=== PATIENT | female | born 1955 | race Caucasian/White ===

== ENCOUNTER → 2016-11-02 | Outpatient (CLI) | payer OTHER ==
--- NOTE | 2016-11-02 18:15 | DX ---
AP Supine Pelvis, Single View at 1:23 p.m. Clinical History: 60-year-old female complaining of right hip pain for 3 months (with special attenti on to the right iliac crest). Rule out abnormality. ICD-10 Diagnostic Code: M25.551. Comparison Study: Pelvis, dated May 18, 2013, retrieved from archive status. Findings: A prior DEXA scan revealed osteoporosis. Each femoral head is well-seated within its respe ctive acetabulum. There is some mild acetabular periarticular spurring, although the femoral and acet abular joint spaces are reasonably well-preserved. The ischial pubic rami are intact. There is no sym physis pubis or SI joint diastasis. Moderate constipation is presents, which slightly obscures some o f the pelvic osseous anatomy. The iliac crests are intact. Impression: Age-appropriate features of the pelvis, with no acute or subacute osseous abnormality. If there is further clinical concern regarding the patient's right hip pain, MR imaging could be cons idered.
== END ==
LOC: BMCIMAGING 13:24
PROVIDERS: ATTEND Internal Medicine
DX: M25.551 Pain in right hip (principal); M81.0 Age-related osteoporosis without current pathological fracture

== ENCOUNTER → 2016-11-26 | Outpatient (CLI) | payer OTHER ==
[~2016-11-26] MED LIST: GADOBUTROL 10 ML VIAL IVP ONE
--- NOTE | 2016-11-27 23:04 | MR ---
MRI of the Right Hip, Without and With Contrast Yesterday. History: Pain over the anterosuperior iliac spine. Technique: Prior to contrast administration, axial, sagittal, and coronal MR sequences of the pelvis are obtained. After intravenous administration of 5 mL Gadavist, postcontrast-enhanced imaging is o btained in three planes. Findings: There is abnormal T2 signal and enhancement involving the sartorius tendon at the origin f rom the anterosuperior iliac spine compatible with tendinosis and peritendinosis. No evidence of com plete tendon tear or retraction. No marrow signal abnormality noted and no soft tissue mass identifi ed. The hips are normal in appearance bilaterally, without significant chondral loss or labral pathology. The sacroiliac joints and symphysis pubis appear normal. No pelvic free fluid or masses. Impression: Focal tendinosis and peritendinosis involving the origin of the right sartorius tendon f rom the anterosuperior iliac spine. Comment: This would represent an excellent target for ultrasound-guided PRP treatment, as clinically appropriate. E:RN/parmjit
== END ==
LOC: FIMAGING 19:44
PROVIDERS: ATTEND Internal Medicine
DX: M76.891 Other specified enthesopathies of right lower limb, excluding foot (principal)
CPT/HCPCS: A9585

== ENCOUNTER → 2017-02-06 | Outpatient (CLI) | payer OTHER | LOC: FIMAGING 14:29 | DX: Z12.31 Encounter for screening mammogram for malignant neoplasm of breast (principal); Z85.3 Personal history of malignant neoplasm of breast | CPT/HCPCS: G0202 ==

== ENCOUNTER 2017-12-23 20:12 | Inpatient (IN) | payer OTHER ==
[2017-12-23] MEDS ORDERED: NS 1,000 ML IV ONE ×2 (20:46→21:59)
--- NOTE | 2017-12-23 21:54 | EDPHY ---
H & P Stated Complaint: pos allergic reaction to meds/flu symptoms Time Seen by Provider: 12/23/17 21:53 HPI/ROS: HPI CHIEF COMPLAINT: Nausea vomiting HISTORY OF PRESENT ILLNESS: This patient very pleasant 62-year-old female she presents emergency room nausea vomiting. She states that yesterday she went to urgent care she thought she had the flu she was having chills and feeling bad. She states that she had a flu test was negative but was still prescribed Tamiflu in additionally she was diagnosed with a urinary tract infection and started on Bactrim. She states that she vomited 4-5 times thought maybe she was having a reaction the Tamiflu or Bactrim. She was switched to another antibiotic. However she continues to feel very bad. She denies any chest pain shortness of breath. Denies abdominal pain. Does endorse ongoing nausea. Past Medical History: Osteoporosis takes Fosamax Past Surgical History: Denies significant surgical history Social History: Denies drugs alcohol tobacco products. Family History: Noncontributory ROS REVIEW OF SYSTEMS: A comprehensive 10 point review of systems is otherwise negative aside from elements mentioned in the history of present illness. Exam Constitutional appears well nontoxic no acute distress, triage nursing summary reviewed, vital signs reviewed, awake/alert. Eyes normal conjunctivae and sclera, EOMI, PERRLA. HENT normal inspection, atraumatic, moist mucus membranes, no epistaxis, neck supple/ no meningismus, no raccoon eyes. Respiratory clear to auscultation bilaterally, normal breath sounds, no respiratory distress, no wheezing. Cardiovascular rate normal, regular rhythm, no murmur, no edema, distal pulses normal. Gastrointestinal soft, non-tender, no rebound, no guarding, normal bowel sounds, no distension, no pulsatile mass. Genitourinary no CVA tenderness. Musculoskeletal no midline vertebral tenderness, full range of motion, no calf swelling, no tenderness of extremities, no meningismus, good pulses, neurovascularly intact. Skin pink, warm, & dry, no rash, skin atraumatic. Neurologic awake, alert and oriented x 3, AAOx3, moves all 4 extremities equally, motor intact, sensory intact, CN II-XII intact, normal cerebellar, normal vision, normal speech. Psychiatric normal mood/affect. Heme/Lymph/Immune no lymphadenopathy. Differential diagnosis includes but is not limited to and in no particular order : sepsis, bacteremia, UTI, pyelonephritis Bowel obstruction, appendicitis, gallbladder disease, diverticulitis, colitis, enteritis, perforated viscus, gastritis, GERD, esophagitis, urinary tract infection, pyelonephritis, kidney stones Medical Decision Making: Plan for this patient IV established with IV fluid bolus, IV Zofran 4 mg for nausea, check basic blood work, EKG, lactic acid, UA. Re-evaluate. Re-evaluation: EKG interpretation by me on record in [employer] system. Impression time of EKG 2213, this is sinus rhythm rate of 72 LVH present. T-wave abnormality V1 V2 V3. No ST elevation. 2241: Sodium critically low 113. Patient received 1 L normal saline prior to me evaluating her. A 2nd L was ordered as she was having nausea vomiting in the emergency room. However the 2nd L been stopped due to her low sodium. Will repeat her chemistry after the 1st L. 225: Is unclear why the patient's sodium is this low. Given how low this is should be admitted to the intensive care unit for severe hyponatremia. At this time she still mentating appropriately. There has been no seizure activity. Waiting on urinalysis. I spoke with the hospitalist service Dr. White for admssion. Additionally I have repeated a chemistry as she did receive about 1.5 L normal saline. 2305: Repeat sodium 115. This is after approximately 1.5 L of normal saline. Updated patient at bedside. Patient need to be admitted for severe hyponatremia. Unclear etiology at this time. Should be admitted the ICU for close monitoring. Critical Care: Total Critical Care Time Spent Managing this Patient: 65Minutes. This time was spent Exclusively with this patient. This Care was exclusive of procedures. The Organ System/life at risk was neurological a metabolic This Patient was in Critical Condition because severe hyponatremia. Hypochloremia. Acidosis. Source: Patient - Personal History Current Tetanus Diphtheria and Acellular Pertussis (TDAP): Yes - Medical/Surgical History Hx Asthma: No Hx Chronic Respiratory Disease: No Hx Diabetes: No Hx Cardiac Disease: No Hx Renal Disease: No Hx Cirrhosis: No Hx Alcoholism: No Hx HIV/AIDS: No Hx Splenectomy or Spleen Trauma: No Other PMH: denies - Social History Smoking Status: Never smoked Constitutional: Initial Vital Signs Temperature (C) 36.5 C 12/23/17 20:27 Heart Rate 72 12/23/17 20:27 Respiratory Rate 18 12/23/17 20:27 Blood Pressure 139/60 H 12/23/17 20:27 O2 Sat (%) 96 12/23/17 20:27 O2 Delivery Mode Room Air Allergies/Adverse Reactions: cephalexin Allergy (Verified 12/23/17 20:25) Cephalosporins Allergy (Verified 12/23/17 20:25) clindamycin Allergy (Verified 12/23/17 20:25) levofloxacin Allergy (Verified 12/23/17 20:25) Penicillins Allergy (Verified 12/23/17 20:25) prednisone Allergy (Verified 12/23/17 20:25) Home Medications: Medication Instructions Recorded Codeine Phosphate/Guaifenesin 12/23/17 Fosamax 35 MG 12/23/17 LORAZEPAM 12/23/17 Medical Decision Making - Data Points Laboratory Results: Laboratory Results 12/23/17 20:55 12/23/17 22:40 12/23/17 12/23/17 12/23/17 22:40 22:22 20:55 WBC RBC Hgb Hct MCV MCH MCHC RDW Plt Count MPV Neut % (Auto) Lymph % (Auto) [place] % (Auto) Eos % (Auto) Baso % (Auto) Nucleat RBC Rel Count Absolute Neuts (auto) Absolute Lymphs (auto) Absolute Monos (auto) Absolute Eos (auto) Absolute Basos (auto) Absolute Nucleated RBC Immature Gran % Immature Gran # PT INR APTT VBG Lactic Acid 0.9 mmol/L mmol/L (0.7-2.1) Sodium 115 mEq/L L* mEq/L (135-145) Potassium 3.9 mEq/L mEq/L (3.5-5.2) Chloride 89 mEq/L L mEq/L (97-110) Carbon Dioxide 16 mEq/l L mEq/l (22-31) Anion Gap 10 mEq/L mEq/L (8-16) BUN 6 mg/dL L mg/dL (7-23) Creatinine 0.4 mg/dL L mg/dL (0.6-1.0) Estimated GFR > 60 Glucose 104 mg/dL H mg/dL (70-100) Serum Osmolality Pending Calcium 6.7 mg/dL L D mg/dL (8.5-10.4) Total Bilirubin Conjugated Bilirubin Unconjugated Bilirubin AST ALT Alkaline Phosphatase Troponin I Total Protein Albumin Lipase TSH Pending 12/23/17 12/23/17 12/23/17 20:55 20:55 20:55 WBC 4.40 10^3/uL 10^3/uL (3.80-9.50) RBC 4.00 10^6/uL L 10^6/uL (4.18-5.33) Hgb 12.5 g/dL L g/dL (12.6-16.3) Hct 35.2 % L % (38.0-47.0) MCV 88.0 fL fL (81.5-99.8) MCH 31.3 pg pg (27.9-34.1) MCHC 35.5 g/dL g/dL (32.4-36.7) RDW 11.6 % % (11.5-15.2) Plt Count 149 10^3/uL L 10^3/uL (150-400) MPV 10.4 fL fL (8.7-11.7) Neut % (Auto) 79.0 % H % (39.3-74.2) Lymph % (Auto) 9.1 % L % (15.0-45.0) [place] % (Auto) 10.9 % % (4.5-13.0) Eos % (Auto) 0.0 % L % (0.6-7.6) Baso % (Auto) 0.5 % % (0.3-1.7) Nucleat RBC Rel Count 0.5 % H % (0.0-0.2) Absolute Neuts (auto) 3.48 10^3/uL 10^3/uL (1.70-6.50) Absolute Lymphs (auto) 0.40 10^3/uL L 10^3/uL (1.00-3.00) Absolute Monos (auto) 0.48 10^3/uL 10^3/uL (0.30-0.80) Absolute Eos (auto) 0.00 10^3/uL L 10^3/uL (0.03-0.40) Absolute Basos (auto) 0.02 10^3/uL 10^3/uL (0.02-0.10) Absolute Nucleated RBC 0.02 10^3/uL H 10^3/uL (0-0.01) Immature Gran % 0.5 % % (0.0-1.1) Immature Gran # 0.02 10^3/uL 10^3/uL (0.00-0.10) PT 14.0 SEC SEC (12.0-15.0) INR 1.06 (0.83-1.16) APTT 32.0 SEC SEC (23.0-38.0) VBG Lactic Acid Sodium 113 mEq/L L* mEq/L (135-145) Potassium 4.0 mEq/L mEq/L (3.5-5.2) Chloride 86 mEq/L L mEq/L (97-110) Carbon Dioxide 16 mEq/l L mEq/l (22-31) Anion Gap 11 mEq/L mEq/L (8-16) BUN 8 mg/dL mg/dL (7-23) Creatinine 0.5 mg/dL L mg/dL (0.6-1.0) Estimated GFR > 60 Glucose 130 mg/dL H mg/dL (70-100) Serum Osmolality Calcium 8.1 mg/dL L mg/dL (8.5-10.4) Total Bilirubin 0.8 mg/dL mg/dL (0.1-1.4) Conjugated Bilirubin 0.2 mg/dL mg/dL (0.0-0.5) Unconjugated Bilirubin 0.6 mg/dL mg/dL (0.0-1.1) AST 38 IU/L IU/L (14-46) ALT 43 IU/L IU/L (9-52) Alkaline Phosphatase 56 IU/L IU/L (38-126) Troponin I < 0.012 ng/mL ng/mL (0.000-0.034) Total Protein 6.4 g/dL g/dL (6.3-8.2) Albumin 3.9 g/dL g/dL (3.5-5.0) Lipase 81 IU/L IU/L (23-300) TSH Medications Given: Discontinued Medications Sodium Chloride (Ns) 1,000 mls @ 0 mls/hr IV ONCE ONE; Wide Open PRN Reason: Protocol Stop: 12/23/17 20:47 Last Admin: 12/23/17 21:00 Dose: 1,000 mls Sodium Chloride (Ns) 1,000 mls @ 0 mls/hr IV EDNOW ONE; Wide Open PRN Reason: Protocol Stop: 12/23/17 22:00 Last Admin: 12/23/17 22:03 Dose: 1,000 mls Ondansetron HCl (Zofran) 4 mg IVP EDNOW ONE Stop: 12/23/17 22:00 Last Admin: 12/23/17 22:04 Dose: 4 mg Departure - Departure Disposition: [facility] Acute Clinical Impression: Hyponatremia Condition: Serious
[2017-12-23] MEDS ORDERED: ONDANSETRON 4 MG/2 ML VIAL IVP ONE (21:59)
[2017-12-23 22:12] LABS: PLATELET COUNT 149 10^3/uL (150-400)
--- NOTE | 2017-12-23 22:16 | CPEKG ---
Heart Rate: 72 RR Interval: 833 P-R Interval: 184 QRSD Interval: 98 QT Interval: 460 QTC Interval: 504 P [place]: 75 QRS [place]: 72 T Wave [place]: 70 EKG Severity - ABNORMAL ECG - EKG Impression: SINUS RHYTHM EKG Impression: PROBABLE LEFT ATRIAL ABNORMALITY EKG Impression: LEFT VENTRICULAR HYPERTROPHY EKG Impression: BORDERLINE PROLONGED QT INTERVAL EKG Impression: BORDERLINE T ABNORMALITIES, ANTERIOR LEADS Electronically Signed By: Nilson Solano 24-Dec-2017 12:34:40
[2017-12-23 22:21] LABS: INR 1.06 (0.83-1.16)
[2017-12-23] MEDS ORDERED: HYDROCODONE/APAP 5/325 TAB PO PRN (22:52)
[2017-12-23] MEDS ORDERED: LORazepam 0.5 MG TAB PO PRN (22:52)
[2017-12-23] MEDS ORDERED: PROMETHAZINE HCL 25 MG TAB PO PRN (22:52)
[2017-12-23] MEDS ORDERED: ACETAMINOPHEN 325 MG TAB PO PRN (22:52)
[2017-12-24] MEDS ORDERED: 1/2 NS 1,000 ML IV SCH (00:15)
[2017-12-24] MEDS ORDERED: CALCIUM CHLORIDE 1 GM in D5W 50 ML IV ONE (00:41)
[2017-12-24] MEDS ORDERED: SODIUM Cl 3% 500 ML IV SCH (01:00)
[2017-12-24] MEDS ORDERED: SODIUM Cl 3% 100 ML IV ONE (01:30)
--- NOTE | 2017-12-24 03:20 | PDGENHP ---
History and Physical - Chief Complaint nausea and vomiting, chills/myalgias - History of Present Illness Source - patient is able to provide most of the history. She has some psychomotor delay but responses appear appropriate. Her has left for the evening at time my interview on the unit. EMR was reviewed and case was discussed with the ED provider as well as Nephrology. HPI - pleasant 62-year-old female with past medical history significant for osteoporosis otherwise healthy presents to the emergency department today with complaints of multiple episodes of nausea and vomiting along with shaking chills and myalgias. Patient reports a recent exposure to a friend who had the flu. She went to urgent care yesterday and had a negative rapid flu test. She was given prophylactic dosing of Tamiflu and also Bactrim for UTI. Patient reports that she was able to take 1 full day dosing for each. Today patient had several episodes of nausea vomiting. Patient denies any hematemesis. She does report some bilious emesis. Currently patient is noting some increased rhinorrhea, sore throat. She denies any cough or dyspnea. No chest pain. Patient does reports significantly increased fatigue as well as diffuse myalgias. She does endorse occasionally some shaking chills. She denies any fevers. She denies any abdominal pain. Positive episode of diarrhea without any melena or hematochezia. Patient has been unable to keep down any fluids today. She normally reports drinking approximately 3-4 L of fluid prior to becoming ill. Her previous sodiums have been in the 132-135 per EMR review. In the ED, patient was noted to be dehydrated and had 2 L IV fluid bolus ordered normal saline. Her sodium returned a by then she had already received 1.5 L of IV fluid. Patient's sodium was noted to be 113. She repeat did show improvement to 115. Patient was noted to have some delayed verbal responses although they were still appropriate. reported to the ED provider that this is not was not quite typical. Patient remained oriented. History Information - Allergies/Home Medication List Allergies/Adverse Reactions: cephalexin Allergy (Verified 12/23/17 20:25) Cephalosporins Allergy (Verified 12/23/17 20:25) clindamycin Allergy (Verified 12/23/17 20:25) levofloxacin Allergy (Verified 12/23/17 20:25) Penicillins Allergy (Verified 12/23/17 20:25) prednisone Allergy (Verified 12/23/17 20:25) Home Medications: Codeine Phosphate/Guaifenesin 12/23/17 [Last Taken Unknown] Fosamax 35 MG 12/23/17 [Last Taken Unknown] LORAZEPAM 12/23/17 [Last Taken Unknown] I have personally reviewed and updated: family history, medical history, social history, surgical history - Past Medical History Additional medical history: Osteoporosis on Fosamax - Surgical History Additional surgical history: Patient denies - Family History Additional family history: Patient reports family members are healthy. - Social History Smoking Status: Never smoked Alcohol Use: None Drug Use: None Additional social history: Patient is lives with her . Core-full Review of Systems Review of Systems: ROS: 10pt was reviewed & negative except for what was stated in HPI & below Physical Exam Physical Exam: Selected Entries 12/23/17 12/23/17 20:27 23:30 Blood Pressure Automatic Method Heart Rate 72 69 Respiratory 18 17 Rate O2 Sat (%) 96 96 Temperature (C) 36.5 C 37 C Blood Pressure 139/60 H 129/63 H Mean Arterial 86 80 Pressure (MAP) O2 Delivery Room Air Room Air Mode Blood Pressure Right Source Upper Arm Temperature Oral Oral Source Heart Rate Heart Rate/ Source Monitor Constitutional: no apparent distress, not in pain, other (Patient appears acutely ill but nontoxic. Lethargic but interactive with prompting.) Eyes: PERRL, anicteric sclera, EOMI Ears, Nose, Mouth, Throat: dry mucous membranes, other (No nasal discharge. No oropharyngeal erythema or exudates.) Cardiovascular: regular rate and rhythym, systolic murmur (2/6), pulses symmetric bilaterally, No tachycardia Peripheral Pulses: 1+: dorsalis-pedis (R), dorsalis-pedis (L) Respiratory: no respiratory distress, no rales or rhonchi, clear to auscultation Gastrointestinal: normoactive bowel sounds, soft, non-tender abdomen, no palpable masses Genitourinary: no bladder tenderness, No irvas in urethra Skin: warm, normal color Musculoskeletal: full muscle strength, No generalized weakness Neurologic: AAOx3, sensation intact bilaterally, CN II-XII Intact, other ( Nonfocal exam), No weakness, No facial droop Psychiatric: flat affect, other (Limited exam secondary to patient's fatigue. Questions are answered appropriate with some psychomotor delay noted.), No interacting appropriately, No anxious, No depressed Lab Data & Imaging Review 12/23/17 20:55 12/24/17 02:06 Laboratory Tests 12/23/17 12/23/17 12/23/17 20:55 20:55 22:40 Sodium 113 L* 115 L* Potassium 4.0 3.9 Chloride 86 L 89 L Carbon Dioxide 16 L 16 L Anion Gap 11 10 BUN 8 6 L Creatinine 0.5 L 0.4 L Estimated GFR > 60 > 60 Glucose 130 H 104 H Serum Osmolality 236 L Calcium 8.1 L 6.7 L D Total Bilirubin 0.8 Conjugated Bilirubin 0.2 Unconjugated Bilirubin 0.6 AST 38 ALT 43 Alkaline Phosphatase 56 Troponin I < 0.012 Total Protein 6.4 Albumin 3.9 Lipase 81 TSH 0.528 WBC 4.40 10^3/uL (3.80-9.50) 12/23/17 20:55 RBC 4.00 10^6/uL (4.18-5.33) L 12/23/17 20:55 Hgb 12.5 g/dL (12.6-16.3) L 12/23/17 20:55 Hct 35.2 % (38.0-47.0) L 12/23/17 20:55 MCV 88.0 fL (81.5-99.8) 12/23/17 20:55 MCH 31.3 pg (27.9-34.1) 12/23/17 20:55 MCHC 35.5 g/dL (32.4-36.7) 12/23/17 20:55 RDW 11.6 % (11.5-15.2) 12/23/17 20:55 Plt Count 149 10^3/uL (150-400) L 12/23/17 20:55 MPV 10.4 fL (8.7-11.7) 12/23/17 20:55 Neut % (Auto) 79.0 % (39.3-74.2) H 12/23/17 20:55 Lymph % (Auto) 9.1 % (15.0-45.0) L 12/23/17 20:55 [place] % (Auto) 10.9 % (4.5-13.0) 12/23/17 20:55 Eos % (Auto) 0.0 % (0.6-7.6) L 12/23/17 20:55 Baso % (Auto) 0.5 % (0.3-1.7) 12/23/17 20:55 Nucleat RBC Rel Count 0.5 % (0.0-0.2) H 12/23/17 20:55 Absolute Neuts (auto) 3.48 10^3/uL (1.70-6.50) 12/23/17 20:55 Absolute Lymphs (auto) 0.40 10^3/uL (1.00-3.00) L 12/23/17 20:55 Absolute Monos (auto) 0.48 10^3/uL (0.30-0.80) 12/23/17 20:55 Absolute Eos (auto) 0.00 10^3/uL (0.03-0.40) L 12/23/17 20:55 Absolute Basos (auto) 0.02 10^3/uL (0.02-0.10) 12/23/17 20:55 Absolute Nucleated RBC 0.02 10^3/uL (0-0.01) H 12/23/17 20:55 Immature Gran % 0.5 % (0.0-1.1) 12/23/17 20:55 Immature Gran # 0.02 10^3/uL (0.00-0.10) 12/23/17 20:55 PT 14.0 SEC (12.0-15.0) 12/23/17 20:55 INR 1.06 (0.83-1.16) 12/23/17 20:55 APTT 32.0 SEC (23.0-38.0) 12/23/17 20:55 VBG Lactic Acid 0.9 mmol/L (0.7-2.1) 12/23/17 22:22 Sodium 119 mEq/L (135-145) L* 12/24/17 02:06 Potassium 3.9 mEq/L (3.5-5.2) 12/24/17 02:06 Chloride 92 mEq/L (97-110) L 12/24/17 02:06 Carbon Dioxide 20 mEq/l (22-31) L 12/24/17 02:06 Anion Gap 7 mEq/L (8-16) L 12/24/17 02:06 BUN 6 mg/dL (7-23) L 12/24/17 02:06 Creatinine 0.4 mg/dL (0.6-1.0) L 12/24/17 02:06 Estimated GFR > 60 12/24/17 02:06 Glucose 107 mg/dL (70-100) H 12/24/17 02:06 Serum Osmolality 236 mosmo/kg (280-297) L 12/23/17 20:55 Calcium 7.9 mg/dL (8.5-10.4) L D 12/24/17 02:06 Total Bilirubin 0.8 mg/dL (0.1-1.4) 12/23/17 20:55 Conjugated Bilirubin 0.2 mg/dL (0.0-0.5) 12/23/17 20:55 Unconjugated Bilirubin 0.6 mg/dL (0.0-1.1) 12/23/17 20:55 AST 38 IU/L (14-46) 12/23/17 20:55 ALT 43 IU/L (9-52) 12/23/17 20:55 Alkaline Phosphatase 56 IU/L (38-126) 12/23/17 20:55 Troponin I < 0.012 ng/mL (0.000-0.034) 12/23/17 20:55 Total Protein 6.4 g/dL (6.3-8.2) 12/23/17 20:55 Albumin 3.9 g/dL (3.5-5.0) 12/23/17 20:55 Lipase 81 IU/L (23-300) 12/23/17 20:55 TSH 0.528 uIU/mL (0.465-4.680) 12/23/17 22:40 Urine Color PALE YELLOW 12/24/17 01:05 Urine Appearance CLEAR 12/24/17 01:05 Urine pH 6.0 (5.0-7.5) 12/24/17 01:05 Ur Specific [place] 1.010 (1.002-1.030) 12/24/17 01:05 Urine Protein NEGATIVE (NEGATIVE) 12/24/17 01:05 Urine Ketones 1+ (NEGATIVE) H 12/24/17 01:05 Urine Blood NEGATIVE (NEGATIVE) 12/24/17 01:05 Urine Nitrate NEGATIVE (NEGATIVE) 12/24/17 01:05 Urine Bilirubin NEGATIVE (NEGATIVE) 12/24/17 01:05 Urine Urobilinogen NEGATIVE EU (0.2-1.0) 12/24/17 01:05 Ur Leukocyte Esterase NEGATIVE (NEGATIVE) 12/24/17 01:05 Urine RBC 1-3 /hpf (0-3) 12/24/17 01:05 Urine WBC 1-3 /hpf (0-3) 12/24/17 01:05 Ur Epithelial Cells Not Reported 12/24/17 01:05 Urine Bacteria TRACE /hpf (NONE SEEN) H 12/24/17 01:05 Urine Mucus TRACE /lpf (NONE-1+) 12/24/17 01:05 Urine Osmolality 392 mosmo/kg (300-900) 12/24/17 01:05 Ur Random Creatinine 26.6 mg/dL 12/24/17 01:05 Ur Random Sodium 89 mEq/L (30-90) 12/24/17 01:05 Urine Glucose 1+ (NEGATIVE) H 12/24/17 01:05 EKG additional interpertation: NSR 70s LVH Qtc 504. some motion artifact. no acute ST changes. Assessment & Plan Assessment: Hyponatremia (Acute) - concerning for possible hypovolemia in setting of nausea vomiting and diarrhea. patient is status post 1.5 L IV fluid NS in the ED and sodium increased from 113 to 115. she received additional volume from electrolyte replacement and 1/2 NS <100 mls. Nephrology consulted to assist with management recommends initiation of hypertonic saline 100 mL bolus with repeat testing. Also urine studies ordered. hypocalcemia - significant drop in calcium. Will check an ionized but patient will be treated with some calcium gluconate. Will initiate replacement protocol in addition. Hypochloremia - decline in sitting hyponatremia. Replacement as noted above Anemia - no evidence of active bleeding possibly secondary to acute illness versus chronic disease. Will continue to monitor CBC. Thrombocytopenia - slightly decreased possibly in setting of acute illness. Monitor CBC as above. Hyperglycemia - this is relatively fasting labs patient has had nausea vomiting. Will monitor a.m. BMP. No correction at this time. FEN - hypertonic saline as noted above. Electrolyte replacement p.r.n. PPX - SCDs and Lovenox Core-full Disposition patient admitted inpatient status to the ICU. Given a critical sodium she requires close cardiac and laboratory monitoring.
[2017-12-24 04:34] LABS: PLATELET COUNT 147 10^3/uL (150-400)
[2017-12-24] MEDS ORDERED: D5W 1,000 ML IV SCH ×3 (06:00→23:30)
[2017-12-24] MEDS ORDERED: DESMOPRESSIN ACETATE 4 MCG/ML INJ IVP ONE (06:00)
--- NOTE | 2017-12-24 09:00 | HOSPPROG ---
Hospitalist Progress Note Assessment/Plan: #Acute hypovolemic hyponatremia -113-->129. Desmopressin given this morning. D5W per renal. Goal Na 123 tomorrow #Influenza A: resume Tamiflu #Osteoporosis #Normocytic anemia: H/H stable #Diet: regular #DVT ppx: Lovenox #Disp: warrants inpt admission for serial labs, D5W infusion. Hope to DC tomorrow Subjective: less weak today. "Want to go home" Objective: Vital Signs Temp Pulse Resp BP Pulse Ox 37.0 C 65 15 104/56 L 96 12/24/17 08:00 12/24/17 08:00 12/24/17 08:00 12/24/17 08:00 12/24/17 08:00 Microbiology 12/24/17 00:15 Respiratory Panel (PCR) - Final Nasal, Sinus - Swab Influenza Virus Type A 2008 H1 Laboratory Results 12/24/17 04:28 12/24/17 04:28 12/23/17 12/24/17 12/25/17 05:59 05:59 05:59 Intake Total 2088 Output Total 4700 700 Balance -2612 -700 PT 14.0 SEC (12.0-15.0) 12/23/17 20:55 INR 1.06 (0.83-1.16) 12/23/17 20:55 - Physical Exam Constitutional: no apparent distress Eyes: PERRL Ears, Nose, Mouth, Throat: moist mucous membranes Cardiovascular: regular rate and rhythym, no murmur, rub, or gallop Respiratory: no respiratory distress Gastrointestinal: normoactive bowel sounds Genitourinary: no bladder fullness Skin: warm Musculoskeletal: full muscle strength Neurologic: CN II-XII Intact Psychiatric: interacting appropriately ICD10 Worksheet Patient Problems: Problems Problem Status Onset Hyponatremia Acute
--- NOTE | 2017-12-24 09:56 | PDMN ---
Medical Necessity Medical necessity: M370 vomiting A-1 day: persistent vomiting with severe electrolyte abnormality NA < 130 ( 113,115) , hypocalcemia, (8.1,6.7) hypocholremia ( 86,89) , thrombocytopenia , anemia, hyperglycemia req further monitoring , eval and tx. - Pt with Influenza A +,
--- NOTE | 2017-12-24 10:18 | PDCONSULT ---
Data Conversion Operator Note: Assessment/Plan: Hyponatremia: urine studies suggestive of SIADH, likely in setting of illness, also compounded with N/V. She has history of sodium that runs slightly low around 132, but not usually this low. She is quickly correcting now on her own with large UOP, but is overcorrecting. Her sodium last night was as low as 113 , so goal would be around 120 tonight and 123 by tomorrow am. - Pt has received DDAVP this morning already. - Will continue D5W at 150ml/hr and encouraged pt to drink fluids. - Will continue to monitor sodium q2h for now and will adjust water, urine and salt accordingly. Metabolic acidosis: improving, will continue to monitor. Thank you for the interesting consult. Nephrology will continue to follow, please call if you have any additional questions or concerns. H & P Stated Complaint: pos allergic reaction to meds/flu symptoms Time Seen by Provider: 12/23/17 21:53 HPI/ROS: HPI: Ms. Ang is a 62 yo F with h/o osteoporosis who presented yesterday with N/V. Pt had an exposure to the flu so went to urgent care two days ago, was negative but was given prophylactic Tamiflu and Bactrim for a UTI. Yesterday, pt had lots of N/V, was unable to even keep fluids down. She came to ER, felt a bit confused but still ok. She was given 1.5L NS and then noted that initial sodium was 113, repeat was 115. She became more lethargic and confused, was given 100ml of 3% once and sodium was up to 119. After that, she was started on D5W but she had large UOP and sodium increased up to 131, was given DDAVP and D5W increased, now sodium is 126. Pt states she feels fine, feels much clearer than yesterday, hoping to go home soon. ROS: Positive per HPI, rest of 10-point ROS negative Source: Patient Exam Limitations: No limitations - Personal History Current Tetanus Diphtheria and Acellular Pertussis (TDAP): Yes - Medical/Surgical History Hx Asthma: No Hx Chronic Respiratory Disease: No Hx Diabetes: No Hx Cardiac Disease: No Hx Renal Disease: No Hx Cirrhosis: No Hx Alcoholism: No Hx HIV/AIDS: No Hx Splenectomy or Spleen Trauma: No Other PMH: denies - Family History Significant Family History: No pertinent family hx - Social History Smoking Status: Never smoked - Physical Exam Exam: General: alert and oriented, no acute distress Eyes: EOMI, PERRL OP: Clear, MMM Neck: supple, no thyromegaly CV: RRR, no edema Resp: CTA bilat, nonlabored respirations on RA Abd: Soft, NT/ND Neuro: CN II-XII grossly intact, no asterixis Psych: cooperative, appropriate mood and affect Skin: C/D/I, no rash Constitutional: Initial Vital Signs Temperature (C) 36.5 C 12/23/17 20:27 Heart Rate 72 12/23/17 20:27 Respiratory Rate 18 12/23/17 20:27 Blood Pressure 139/60 H 12/23/17 20:27 O2 Sat (%) 96 12/23/17 20:27 O2 Delivery Mode Room Air Allergies/Adverse Reactions: cephalexin Allergy (Verified 12/24/17 08:36) Rash Cephalosporins Allergy (Verified 12/24/17 08:36) Rash clindamycin Allergy (Verified 12/24/17 08:36) Rash levofloxacin Allergy (Verified 12/24/17 08:36) Rash Penicillins Allergy (Verified 12/24/17 08:36) Rash prednisone Allergy (Verified 12/24/17 08:36) Rash Home Medications: Medication Instructions Recorded Alendronate Sodium [Fosamax 70 MG 70 mg PO TU@0700 12/23/17 (*)] Cholecalciferol Vit D3 [Vitamin D3 1,000 units PO DAILY 12/24/17 (*)] Herbals/Supplements -Info Only 1 each PO DAILY 12/24/17 Multivitamins [Multivitamin (*)] 1 each PO DAILY 12/24/17 Nitrofurantoin Monohyd/M-Cryst 100 mg PO BID 12/24/17 [Macrobid 100 mg Capsule] Ondansetron Odt [Zofran Odt 4 mg 4 mg PO Q6HRS PRN 12/24/17 (*)] Lab and Imaging 12/24/17 04:28 12/24/17 04:28 WBC 3.71 10^3/uL (3.80-9.50) L 12/24/17 04:28 RBC 3.97 10^6/uL (4.18-5.33) L 12/24/17 04:28 Hgb 12.3 g/dL (12.6-16.3) L 12/24/17 04:28 POC Hgb 11.9 gm/dL (12.6-16.3) L 12/24/17 07:54 Hct 34.8 % (38.0-47.0) L 12/24/17 04:28 POC Hct 35 % (38-47) L 12/24/17 07:54 MCV 87.7 fL (81.5-99.8) 12/24/17 04:28 MCH 31.0 pg (27.9-34.1) 12/24/17 04:28 MCHC 35.3 g/dL (32.4-36.7) 12/24/17 04:28 RDW 11.4 % (11.5-15.2) L 12/24/17 04:28 Plt Count 147 10^3/uL (150-400) L 12/24/17 04:28 MPV 9.6 fL (8.7-11.7) 12/24/17 04:28 Neut % (Auto) 65.2 % (39.3-74.2) 12/24/17 04:28 Lymph % (Auto) 19.4 % (15.0-45.0) 12/24/17 04:28 [place] % (Auto) 14.8 % (4.5-13.0) H 12/24/17 04:28 Eos % (Auto) 0.0 % (0.6-7.6) L 12/24/17 04:28 Baso % (Auto) 0.3 % (0.3-1.7) 12/24/17 04:28 Nucleat RBC Rel Count 0.0 % (0.0-0.2) 12/24/17 04:28 Absolute Neuts (auto) 2.42 10^3/uL (1.70-6.50) 12/24/17 04:28 Absolute Lymphs (auto) 0.72 10^3/uL (1.00-3.00) L 12/24/17 04:28 Absolute Monos (auto) 0.55 10^3/uL (0.30-0.80) 12/24/17 04:28 Absolute Eos (auto) 0.00 10^3/uL (0.03-0.40) L 12/24/17 04:28 Absolute Basos (auto) 0.01 10^3/uL (0.02-0.10) L 12/24/17 04:28 Absolute Nucleated RBC 0.00 10^3/uL (0-0.01) 12/24/17 04:28 Immature Gran % 0.3 % (0.0-1.1) 12/24/17 04:28 Immature Gran # 0.01 10^3/uL (0.00-0.10) 12/24/17 04:28 PT 14.0 SEC (12.0-15.0) 12/23/17 20:55 INR 1.06 (0.83-1.16) 12/23/17 20:55 APTT 32.0 SEC (23.0-38.0) 12/23/17 20:55 VBG Lactic Acid 0.9 mmol/L (0.7-2.1) 12/23/17 22:22 POC Sodium 129 mEq/L (135-145) L 12/24/17 07:54 Sodium 125 mEq/L (135-145) L 12/24/17 04:28 POC Potassium 3.7 mEq/L (3.3-5.0) 12/24/17 07:54 Potassium 4.2 mEq/L (3.5-5.2) 12/24/17 04:28 POC Chloride 96 mEq/L (97-110) L 12/24/17 07:54 Chloride 98 mEq/L (97-110) 12/24/17 04:28 Carbon Dioxide 20 mEq/l (22-31) L 12/24/17 04:28 Anion Gap 7 mEq/L (8-16) L 12/24/17 04:28 POC BUN 5 mg/dL (7-23) L 12/24/17 07:54 BUN 6 mg/dL (7-23) L 12/24/17 04:28 Creatinine 0.5 mg/dL (0.6-1.0) L 12/24/17 04:28 POC Creatinine 0.5 mg/dL (0.6-1.0) L 12/24/17 07:54 Estimated GFR > 60 12/24/17 04:28 Glucose 94 mg/dL (70-100) 12/24/17 04:28 POC Glucose 114 mg/dL (70-100) H 12/24/17 07:54 Serum Osmolality 236 mosmo/kg (280-297) L 12/23/17 20:55 Calcium 8.3 mg/dL (8.5-10.4) L 12/24/17 04:28 Ionized Calcium 1.07 MMOL/L (1.12-1.30) L 12/24/17 04:28 Phosphorus 3.5 mg/dL (2.5-4.5) 12/24/17 04:28 Magnesium 1.7 mg/dL (1.6-2.3) 12/24/17 04:28 Total Bilirubin 0.8 mg/dL (0.1-1.4) 12/23/17 20:55 Conjugated Bilirubin 0.2 mg/dL (0.0-0.5) 12/23/17 20:55 Unconjugated Bilirubin 0.6 mg/dL (0.0-1.1) 12/23/17 20:55 AST 38 IU/L (14-46) 12/23/17 20:55 ALT 43 IU/L (9-52) 12/23/17 20:55 Alkaline Phosphatase 56 IU/L (38-126) 12/23/17 20:55 Troponin I < 0.012 ng/mL (0.000-0.034) 12/23/17 20:55 Total Protein 6.4 g/dL (6.3-8.2) 12/23/17 20:55 Albumin 3.9 g/dL (3.5-5.0) 12/23/17 20:55 Lipase 81 IU/L (23-300) 12/23/17 20:55 TSH 0.528 uIU/mL (0.465-4.680) 12/23/17 22:40 Cortisol AM Sample 8.1 ug/dL (4.5-22.7) 12/24/17 04:28 Urine Color PALE YELLOW 12/24/17 01:05 Urine Appearance CLEAR 12/24/17 01:05 Urine pH 6.0 (5.0-7.5) 12/24/17 01:05 Ur Specific [place] 1.010 (1.002-1.030) 12/24/17 01:05 Urine Protein NEGATIVE (NEGATIVE) 12/24/17 01:05 Urine Ketones 1+ (NEGATIVE) H 12/24/17 01:05 Urine Blood NEGATIVE (NEGATIVE) 12/24/17 01:05 Urine Nitrate NEGATIVE (NEGATIVE) 12/24/17 01:05 Urine Bilirubin NEGATIVE (NEGATIVE) 12/24/17 01:05 Urine Urobilinogen NEGATIVE EU (0.2-1.0) 12/24/17 01:05 Ur Leukocyte Esterase NEGATIVE (NEGATIVE) 12/24/17 01:05 Urine RBC 1-3 /hpf (0-3) 12/24/17 01:05 Urine WBC 1-3 /hpf (0-3) 12/24/17 01:05 Ur Epithelial Cells Not Reported 12/24/17 01:05 Urine Bacteria TRACE /hpf (NONE SEEN) H 12/24/17 01:05 Urine Mucus TRACE /lpf (NONE-1+) 12/24/17 01:05 Urine Osmolality 392 mosmo/kg (300-900) 12/24/17 01:05 Ur Random Creatinine 26.6 mg/dL 12/24/17 01:05 Ur Random Sodium 89 mEq/L (30-90) 12/24/17 01:05 Urine Glucose 1+ (NEGATIVE) H 12/24/17 01:05
--- NOTE | 2017-12-24 11:23 | ASMTCMCOM ---
CM Note CM Note Notes: Patient admitted for hyponatremia in the setting of Influenza A with nausea and vomiting. She is feeling better with supportive care. Patient lives with and is normally independent. She will likely discharge independent with no needs, but Case Management available if any arise. Date Signed: 12/24/2017 11:23 AM Electronically Signed By:Gregoria Gan RN
[2017-12-24] MEDS: OSELTAMIVIR PHOSPHATE 75 MG CAP PO SCH ×2 (11:29→18:30)
[2017-12-24] MEDS: ENOXAPARIN 40 MG/0.4 ML SYR SC SCH (14:35)
[2017-12-24] MEDS: NITROFURANTOIN MACROBID 100 MG CAP PO SCH (20:07)
[2017-12-24] MEDS: ONDANSETRON 4 MG/2 ML VIAL IVP PRN (20:10)
[2017-12-24] MEDS ORDERED: POTASSIUM CL 20 MEQ TAB PO ONE (23:30)
[2017-12-25] MEDS ORDERED: SODIUM Cl 3% 100 ML IV ONE ×2 (00:30→07:00)
[2017-12-25] MEDS: ONDANSETRON 4 MG/2 ML VIAL IVP PRN (05:56)
[2017-12-25 06:39] VITALS: PULSE 63
[2017-12-25 08:17] VITALS: TEMP 98.8
--- NOTE | 2017-12-25 08:20 | HOSPPROG ---
Hospitalist Progress Note Assessment/Plan: #Acute hypovolemic hyponatremia -113-->129. Desmopressin given this morning. D5W per renal. Goal Na 123 tomorrow #Influenza A: resume Tamiflu #Osteoporosis #Normocytic anemia: H/H stable #Diet: regular DC today with . Repeat BMP Mon or . Discussed with Dr. Adam who agreed with plan Subjective: episode of vomiting early this morning Objective: Vital Signs Temp Pulse Resp BP Pulse Ox 37.1 C 63 18 116/66 98 12/25/17 08:00 12/25/17 08:00 12/25/17 05:48 12/25/17 08:00 12/25/17 08:00 Microbiology 12/24/17 00:15 Respiratory Panel (PCR) - Final Nasal, Sinus - Swab Influenza Virus Type A 2009 H1 Laboratory Results 12/24/17 04:28 12/25/17 05:48 12/24/17 12/25/17 12/26/17 05:59 05:59 06:59 Intake Total 2088 4250 Output Total 4700 3300 Balance -2612 950 PT 14.0 SEC (12.0-15.0) 12/23/17 20:55 INR 1.06 (0.83-1.16) 12/23/17 20:55 - Physical Exam Constitutional: no apparent distress Eyes: PERRL Ears, Nose, Mouth, Throat: moist mucous membranes, hearing normal Cardiovascular: regular rate and rhythym, no murmur, rub, or gallop Respiratory: no respiratory distress, no rales or rhonchi Gastrointestinal: normoactive bowel sounds, soft, non-tender abdomen Genitourinary: no bladder fullness Skin: warm, other (good skin tugor) Musculoskeletal: full muscle strength, other (walking around her room without difficulty) Neurologic: AAOx3, CN II-XII Intact Psychiatric: interacting appropriately ICD10 Worksheet Patient Problems: Problems Problem Status Onset Hyponatremia Acute
[2017-12-25] MEDS ORDERED: CHOLECALCIFEROL VIT D3 1,000 UNITS TAB PO SCH (09:00)
[2017-12-25] MEDS ORDERED: MULTIVITAMINS 1 EACH TAB PO SCH (09:00)
[2017-12-25] MEDS ORDERED: Herbals/Supplements -Info Only PO SCH (09:00)
--- NOTE | 2017-12-25 09:31 | SOAPPROG ---
SOAP Progress Note Assessment/Plan: Assessment/Plan: Hyponatremia: urine studies suggestive of SIADH, glenn in setting of illness also compounded wiht N/V. She has history of sodium that runs slightly low around 132, but not usually this low. Suspect that she dropped quickly but cannot be sure. Her sodium was 113 on presentation and corrected very rapidly to 131, spent yesterday getting sodium down a bit to avoid sequelae of overcorrection. However, with a lab error sodium ended up down to 110, has gotten additional 3% and is responding. - Will stop D5W. - Will continue to check sodium q3h. - Will allow pt to correct on her own today, goal is sodium to be around 128- 130 by tomorrow morning. Hypokalemia: given 40 KCl overnight and K is now 3.9, will continue to monitor. Subjective: No acute events overnight. Pt feeling well, had a bit of nausea yesterday evening with eating chicken parm but otherwise feels fine. She was getting istat sodium checks yesterday that were fairly consistent but then had lab around midnight that was off, repeat BMP sent to lab showed sodium was in fact much lower than istats had been measuring down to 110, has gotten 100ml of 3% x2 early this am. Objective: Vital Signs Temp Pulse Resp BP Pulse Ox 37.1 C 63 18 116/66 98 12/25/17 08:00 12/25/17 08:00 12/25/17 05:48 12/25/17 08:00 12/25/17 08:00 Microbiology 12/24/17 00:15 Respiratory Panel (PCR) - Final Nasal, Sinus - Swab Influenza Virus Type A 2009 H1 Laboratory Results 12/25/17 09:05 12/24/17 12/25/17 12/26/17 05:59 05:59 06:59 Intake Total 2088 4250 Output Total 4700 3300 Balance -2612 950 PT 14.0 SEC (12.0-15.0) 12/23/17 20:55 INR 1.06 (0.83-1.16) 12/23/17 20:55 General: alert and oriented, no acute distress Eyes; EOMI, PERRL OP: CLear CV: RRR Resp: nonlabored respirations on RA Abd: Soft, NT/ND Ext: no edema BLE Neuro: CN II-XII Grossly intact, no asterixis Psych: cooperative, appropriate mood and affect ICD10 Worksheet Patient Problems: Problems Problem Status Onset Hyponatremia Acute
[2017-12-25 12:21] VITALS: BP 113/67; RESP 16; O2SAT 97
--- NOTE | 2017-12-25 13:51 | GDS ---
[f rep st] DISCHARGE SUMMARY DISCHARGE DIAGNOSES: 1. Influenza A. 2. Weakness. 3. Acute hypovolemic hyponatremia. 4. Nausea, vomiting. 5. Osteoporosis. 6. Normocytic anemia. HISTORY OF PRESENT ILLNESS: A 62-year-old female with history of osteoporosis presenting with flu-like symptoms, including myalgias, fatigue, and chills. She denies any fevers. She did have several episodes of nausea, vomiting without hematemesis. She was unable to keep any fluids down, and normally drinks 2-4 L daily prior to becoming ill. Baseline sodiums are 132-135. In the emergency room, the patient was noted to be dehydrated, had 2 L IV fluids normal saline. She was given 1.5 L. sodium was noted to be 113. At that time, she was delayed in her speech. HOSPITAL COURSE BY PROBLEM: 1. Acute hypovolemic hyponatremia: Secondary to gastrointestinal losses with acute illness. Sodium was 113 in the emergency room, was overcorrected with normal saline. Renal evaluated. The patient was given desmopressin and D5. Sodium dropped again overnight, however this is improved this morning. She is able to tolerate p.o. Recommend plenty of fluids. Repeat BMP by her PCP this week. 2. Normocytic anemia. H and H are stable. 3. Weakness secondary to hyponatremia and acute illness. This is resolved. She is walking the unit. 4. Influenza A: Had Tamiflu at home. She is to complete a 5-day course. DISPOSITION: The patient is stable for discharge home with her . DIET: Plenty of fluids. Advance diet slowly. FOLLOWUP: 1. Primary care physician next week. 2. BMP. /[id number]/MODL MTDD
[2017-12-25] MEDS: NITROFURANTOIN MACROBID 100 MG CAP PO SCH (16:28)
[2017-12-25] MEDS: ENOXAPARIN 40 MG/0.4 ML SYR SC SCH (16:28)
[2017-12-25] MEDS: OSELTAMIVIR PHOSPHATE 75 MG CAP PO SCH (16:28)
== END 2017-12-25 15:00 | disposition home or self-care (01) | DRG 641 ==
LOC: F2N 23:41
PROVIDERS: ADMIT Family Medicine; ATTEND Internal Medicine
DX: E87.1 Hypo-osmolality and hyponatremia (principal); J10.1 Influenza due to other identified influenza virus with other respiratory manifestations; N39.0 Urinary tract infection, site not specified; M81.0 Age-related osteoporosis without current pathological fracture; D64.9 Anemia, unspecified
CPT/HCPCS: 82947-QW; J1650; J2405; J2597

== ENCOUNTER → 2018-02-07 | Outpatient (CLI) | payer OTHER | LOC: FIMAGING 16:01 | PROVIDERS: ATTEND Obstetrics & Gynecology | DX: Z12.31 Encounter for screening mammogram for malignant neoplasm of breast (principal); Z85.3 Personal history of malignant neoplasm of breast ==

== ENCOUNTER 2018-03-21 09:50 | Observation (INO) | payer OTHER ==
[2018-03-21] MEDS ORDERED: NS 1,000 ML IV ONE (10:21)
--- NOTE | 2018-03-21 10:41 | CPEKG ---
Heart Rate: 66 RR Interval: 909 P-R Interval: 188 QRSD Interval: 98 QT Interval: 420 QTC Interval: 441 P [place]: 75 QRS [place]: 72 T Wave [place]: 67 EKG Severity - ABNORMAL ECG - EKG Impression: SINUS RHYTHM EKG Impression: LEFT VENTRICULAR HYPERTROPHY EKG Impression: ST ELEVATION SUGGESTS PERICARDITIS Electronically Signed By: Mt Santacruz 21-Mar-2018 14:55:05
--- NOTE | 2018-03-21 11:37 | EDPHY ---
H & P Time Seen by Provider: 03/21/18 10:21 HPI/ROS: HPI Lightheaded, diarrhea. 62-year-old female by private vehicle. This patient reports that Wednesday evening she developed loose stools and diarrhea. She reports that this has persisted through this morning. She has had some intermittent nausea but no vomiting. She denies any significant change in diet. She also reports feeling more fatigued than usual. No bloody or melenic stool. She currently is not nauseous. No chest pain. No shortness of breath. ROS: Constitutional: No fever, no chills. No weakness. Eyes: No discharge. No changes in vision. ENT: No sore throat. No nasal congestion or rhinorrhea. Respiratory: No cough. No shortness of breath. Cardiac: No chest pain, no palpitations. Gastrointestinal: No abdominal pain, no vomiting, as above. Genitourinary: No hematuria. No dysuria or increased frequency with urination. Musculoskeletal: No back pain. No neck pain. No myalgias or arthralgias. Skin: No rashes. Neurological: No headache. No focal weakness or altered sensation. Past medical history: Osteoporosis. Denies any significant past medical history. Social history: Has a son. Is currently here by herself. Nonsmoker. No alcohol. Very physically active. Physical Exam: General Appearance: Alert, no distress. This patient is responding to questions appropriately and in full sentences. This patient appears well- hydrated and well-nourished. Eyes: Pupils equal and round no pallor or injection. No lid edema, erythema or injection. Respiratory: There are no retractions, lungs are clear to auscultation with good air movement bilaterally. Cardiovascular: Regular rate and rhythm. No murmur appreciated. Gastrointestinal: Abdomen is soft and nontender, no masses, bowel sounds normal. No focal tenderness at McBurney's point. No Faith sign. Neurological: Motor sensory function is grossly intact. Cranial nerves are normal. Gait is normal. Skin: Warm and dry, no rashes. Musculoskeletal: Neck is supple and nontender. Extremities are symmetrical. All joints range without pain or impingement. Psychiatric: No agitation. No depression. Database: EKG: EKG time is 10:38 a.m.; EKG shows a narrow complex normal sinus rhythm with a ventricular rate of 66. Left ventricular hypertrophy noted. Diffuse J-point elevation. Could represent an early repolarization pattern verses pericarditis. No reciprocal changes. The GA, QRS, QT intervals are within normal limits. There are no ST-T wave changes indicative of ischemic or injury pattern. No evidence of right heart strain. This EKG was compared to a prior EKG from December of 2017. Similar but not identical changes seen on that EKG. Interpreted by me. Imaging: Procedures: Emergency department course: Vital signs reviewed and are normal. IV placed. She will be given 1 L of IV normal saline. She currently declines any nausea medication. Secondary to her lightheadedness EKG obtained. Electrolytes and CBC will be evaluated as well. 1:00 p.m., patient re-evaluated. She is feeling mildly nauseous but also think she can eat something at this time. I discussed the results of her blood work in her low sodium. I discussed my concerns about her EKG changes. At this time she is asking for something to eat. She is unsure she wants to be admitted to the hospital currently. 1:15 p.m., patient re-evaluated. She drank some Gatorade but is feeling nauseous. She now states that she would like to be admitted for correction of her sodium, IV hydration and antiemetics. I spoke with hospitalist. Patient accepted under the care of Dr. Ochoa. Her remaining emergency department course under my care has been uneventful. She was given 4 mg of IV Zofran for nausea. She was admitted to the hospitalist service in stable condition. Differential Diagnosis: The differential diagnosis on this patient includes but is not limited to food borne illness, viral gastroenteritis. Arrhythmia, acute coronary syndrome unlikely. This represents a partial list of diagnoses considered. These considerations are based on history, physical exam, past history, reassessment and diagnostic testing. Smoking Status: Never smoked Constitutional: Initial Vital Signs Temperature (C) 36.5 C 03/21/18 09:59 Heart Rate 63 03/21/18 09:59 Respiratory Rate 16 03/21/18 09:59 Blood Pressure 145/75 H 03/21/18 09:59 O2 Sat (%) 98 03/21/18 09:59 O2 Delivery Mode Room Air Allergies/Adverse Reactions: cephalexin Allergy (Verified 03/21/18 09:58) Rash Cephalosporins Allergy (Verified 03/21/18 09:58) Rash clindamycin Allergy (Verified 03/21/18 09:58) Rash levofloxacin Allergy (Verified 03/21/18 09:58) Rash oseltamivir [From Tamiflu] Allergy (Verified 03/21/18 09:58) Penicillins Allergy (Verified 03/21/18 09:58) Rash prednisone Allergy (Verified 03/21/18 09:58) Rash Home Medications: Medication Instructions Recorded Alendronate Sodium [Fosamax 70 MG 70 mg PO TU@0700 12/23/17 (*)] Cholecalciferol Vit D3 [Vitamin D3 1,000 units PO DAILY 12/24/17 (*)] Herbals/Supplements -Info Only 1 each PO DAILY 12/24/17 Multivitamins [Multivitamin (*)] 1 each PO DAILY 12/24/17 Acetaminophen [Tylenol 325mg (*)] 325 mg PO DAILY PRN 03/21/18 Medical Decision Making - Data Points Laboratory Results: Laboratory Results 03/21/18 10:45 03/21/18 10:45 Medications Given: Acetaminophen (Tylenol) 650 mg PO Q4HRS PRN PRN Reason: Pain, Mild/Fever, Can Take PO Stop: 09/17/18 13:28 Last Admin: 03/21/18 22:35 Dose: 325 mg Discontinued Medications Sodium Chloride (Ns) 1,000 mls @ 0 mls/hr IV EDNOW ONE; Wide Open PRN Reason: Protocol Stop: 03/21/18 10:22 Last Admin: 03/21/18 10:46 Dose: 1,000 mls Ondansetron HCl (Zofran) 4 mg IVP EDNOW ONE Stop: 03/21/18 13:17 Last Admin: 03/21/18 13:27 Dose: Not Given Point of Care Test Results: Chemistry 03/21/18 03/21/18 11:26 11:09 POC Sodium 126 mEq/L L mEq/L (135-145) POC Potassium 3.5 mEq/L mEq/L (3.3-5.0) POC Chloride 91 mEq/L L mEq/L (97-110) POC BUN 7 mg/dL mg/dL (7-23) POC Creatinine 0.5 mg/dL L mg/dL (0.6-1.0) POC Glucose 92 mg/dL mg/dL (70-100) POC Troponin I 0.00 ng/mL ng/mL (0.00-0.08) ISTAT H&H 03/21/18 11:09 POC Hgb 13.3 gm/dL gm/dL (12.6-16.3) POC Hct 39 % % (38-47) Departure - Departure Disposition: [facility] Inpatient Acute Clinical Impression: Diarrhea, Lightheaded, Hyponatremia
[2018-03-21 12:02] LABS: PLATELET COUNT 200 10^3/uL (150-400)
[2018-03-21] MEDS ORDERED: ONDANSETRON 4 MG/2 ML VIAL IVP ONE (13:16)
[2018-03-21] MEDS ORDERED: oxyCODONE IR 5 MG TAB PO PRN (13:29)
[2018-03-21] MEDS ORDERED: ACETAMINOPHEN 325 MG TAB PO PRN (13:29)
[2018-03-21] MEDS ORDERED: PROMETHAZINE HCL 25 MG/ML INJ IVP PRN (13:29)
[2018-03-21] MEDS ORDERED: LORazepam 0.5 MG TAB PO PRN (13:29)
[2018-03-21] MEDS ORDERED: ONDANSETRON 4 MG/2 ML VIAL IVP PRN (13:29)
[2018-03-21] MEDS ORDERED: ONDANSETRON DISINTEGRATING 4 MG TAB PO PRN (13:29)
--- NOTE | 2018-03-21 15:03 | GHP ---
[f rep st] HISTORY AND PHYSICAL DATE OF ADMISSION: 03/21/2018 CHIEF COMPLAINT: Diarrhea and weakness. HISTORY OF PRESENT ILLNESS: This is a 62-year-old female with past medical history of hyponatremia, presenting with several days of diarrhea and generalized weakness. She notes that she had initially overdone it exercising, then began having loose stools and diarrhea. This persisted over the weekend and including today. She has been drinking lots of water because she felt dehydrated, but still con tinued to feel very thirsty and very weak. She did have an episode of severe hyponatremia in December this year and she became concerned that she might be having hyponatremia again, and for that reason came to the hospital for further evaluation. PAST MEDICAL HISTORY: Includes osteoporosis. PAST SURGICAL HISTORY: Denies. FAMILY HISTORY: Unremarkable. SOCIAL HISTORY: Patient is a never smoker. She drinks alcohol very rarely. She is , lives w ith her . REVIEW OF SYSTEMS: 10-point review of systems obtained, negative, except as per HPI. HOME MEDICATIONS: 1. Multivitamin. 2. Cholecalciferol. 3. Fosamax. 4. Tylenol. ALLERGIES: Multiple. Please see EHR. PHYSICAL EXAMINATION: Voluntary BP 118/69, heart rate 62, respiratory rate 20, O2 sats 98% on room a ir. GENERAL APPEARANCE: This is a well-developed/well-nourished female. She is awake and alert in no acute distress. HEENT: Eyes: Anicteric. ENT: Oropharynx clear. CARDIOVASCULAR: Regular rate and rhythm. No MRG. PULMONARY: CTA bilaterally. Normal work of breathing. ABDOMEN: Soft, nonte nder. Positive bowel sounds. EXTREMITIES: No clubbing, cyanosis, or edema. SKIN: Warm, dry, well perfused. NEURO/PSYCH: Oriented, appropriate, pleasant. CLINICAL DATA: Labs reviewed. Notable for a sodium of 124, baseline sodium appears to be approximat bernice 130, creatinine 0.5. CBC notable for hematocrit of 36.9, which is similar to prior. EKG personally reviewed and interpreted shows sinus rhythm. ASSESSMENT/PLAN: This is a 62-year-old female with past medical history of osteoporosis and hyponatr emia presenting with hyponatremia in the setting of diarrhea and over-exercising. 1. Hyponatremia. This is mild and not significantly different from her usual baseline. I suspect s he does have a component of syndrome of inappropriate antidiuretic hormone secretion leading to chron ic hyponatremia with a tendency to become even lower when she is dry. She has been given a L of norm al saline and will recheck sodium now. We will hold off on any further fluid and allow her to correc t on her own. She does have a history of drinking large amounts of water and if her sodium is not co rrecting as expected, would fluid restrict her overnight. Urine sodium and urine osmolality have bee n ordered, is currently pending. 2. Diarrhea. Sounds as if this started before her hyponatremia and is likely the cause of her worse dean hyponatremia, rather than because of it. Will send gastrointestinal stool pathogen panel on her next bowel movement. 3. Osteoporosis. We will continue her alendronate. 4. Observation status. I suspect she will need less than 48 hours stay for evaluation and managemen t of above. Patient is new to my care. Old records reviewed, summarized as per HPI and past medical history. Ca re plan reviewed with ER physician as outlined above. /[id number]/MODL
[2018-03-22] MEDS ORDERED: ALENDRONATE SODIUM 70 MG TAB PO SCH (07:00)
[2018-03-22 07:44] VITALS: BP 129/75
[2018-03-22] MEDS ORDERED: MULTIVITAMINS 1 EACH TAB PO SCH (09:00)
[2018-03-22] MEDS ORDERED: CHOLECALCIFEROL VIT D3 1,000 UNITS TAB PO SCH (09:00)
--- NOTE | 2018-03-22 09:04 | PDDCSUM ---
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 Resolved quickly with fluid resuscitation and now back to normal. Discussed with her at length that when losing fluid due to diarrhea/sweating etc she should focus on taking in electrolyte rich fluids rather than water. This is the second occurrence and would consider going to nephrology which she states she will discuss with her PCP. REcommend repeat Na check in the next week. # osteoporosis: continue alendronate DC home f/u with PCP in the next week Repeat BMP in the next week Consider f/u with nephrology if Na still on the low end > 35 min spent in dc more than half in counseling patient regarding f/u plans
== END 2018-03-22 10:33 | disposition home or self-care (01) ==
LOC: F3E 15:19
PROVIDERS: ADMIT Internal Medicine; ATTEND Internal Medicine
DX: E87.1 Hypo-osmolality and hyponatremia (principal); R19.7 Diarrhea, unspecified; R42 Dizziness and giddiness; E86.9 Volume depletion, unspecified; M81.0 Age-related osteoporosis without current pathological fracture; Z85.3 Personal history of malignant neoplasm of breast; Z88.0 Allergy status to penicillin
CPT/HCPCS: 93005; 96360; 99285; G0378; 82435-PO; 82565-PO; 82947-PO; 84132-PO; 84295-PO; 84484-PO; 84520-PO; 85014-PO; J2405

== ENCOUNTER → 2019-03-14 | Outpatient (CLI) | payer OTHER | LOC: FIMAGING 13:10 ==